=== PATIENT | male | born 1960 | race Caucasian/White ===

== ENCOUNTER → 2017-03-17 | Outpatient (CLI) | payer BC ==
[~2017-03-17] MED LIST: ATOR10TA PO; CATHETER FLUSH 10 ML SYR IV PRN; IOHEXOL 350 MG/ML 100 ML (OMNIPAQUE 350) VIAL IV ONE; LEVO100T7 PO; LOSA1TAB19 PO; NS 100 ML (IVPB) BAG IV ONE
[2017-03-17 12:35] LABS: BLOOD UREA NITROGEN 10 MG/DL (7-18); BUN/CREATININE RATIO 12; CREATININE SERUM 0.82 MG/DL (0.60-1.30); GFR ESTIMATED > 60
--- NOTE | 2017-03-17 14:13 | Diagnostic Imaging Report ---
PROCEDURE: CT abdomen and pelvis with contrast. TECHNIQUE: Multiple contiguous axial images were obtained through the abdomen and pelvis after administration of intravenous contrast. INDICATION: Left groin pain. Right femoral pain. 100 mL of Omnipaque 350 is administered intravenously. FINDINGS: There is minimal atelectasis in the lung bases. The liver, the gallbladder, the pancreas, the adrenal glands, and the spleen appear unremarkable. The kidneys have symmetric enhancement and contrast excretion. There is no hydronephrosis. The abdominal aorta is normal in caliber. No para-aortic significantly enlarged lymph node is seen. The appendix is normal. There is no bowel obstruction. Oral contrast is seen in the colon and the stomach. Few colonic diverticula are seen with no evidence of diverticulitis. There is no significant free fluid or fluid collection in the abdomen or pelvis. There is a tiny fat-containing umbilical hernia. No evidence of an inguinal hernia is seen. No inguinal lymphadenopathy or mass. There is significant beam hardening artifact seen from bilateral hip replacement, particularly obscuring structures within the lower pelvis. The lumbar spine demonstrates prominent degenerative changes. IMPRESSION: 1. Diverticulosis. No evidence of diverticulitis. 2. Tiny fat-containing umbilical hernia. Dictated by: Dictated on workstation # [id number]
== END ==
LOC: RAD 11:59
PROVIDERS: ATTEND Surgery
DX: K57.30 Diverticulosis of large intestine without perforation or abscess without bleeding (principal); K42.9 Umbilical hernia without obstruction or gangrene
CPT/HCPCS: 36415; 74177; 82565; 84520